=== PATIENT | male | born 1955 | race Two or more races ===

== ENCOUNTER 2019-08-19 08:52 | Emergency (ER) | payer MEDICARE ==
[2019-08-19] MEDS ORDERED: KETOROLAC TROMETHAMINE 60 MG/2 ML SDV IM ONE (09:31)
[2019-08-19] MEDS ORDERED: LISINOPRIL 5 MG TABLET PO ONE (09:32)
[2019-08-19] MEDS ORDERED: METOPROLOL TARTRATE 25 MG TABLET PO ONE (09:32)
--- NOTE | 2019-08-19 09:43 | ER Document Report ---
HPI - HPI Time Seen by Provider: 08/19/19 09:23 Pain Level: 5 Context: Patient is a 64-year-old male with a history of hypertension who presents to the emergency department with a chief complaint of hand pain. Patient reports yesterday around noon he was at work when he was pulling on a rope and developed right hand pain. Patient denies a specific injury. Patient reports that he is having significant pain in his second, third, fourth and fifth digit of the right hand. Patient reports increased swelling and inability to extend the third and fourth digit due to pain. Patient thinks that his fingers are locked. Patient did not take anything for his pain/discomfort, and also did not take his blood pressure medications yesterday. Past Medical History - General Information source: Patient - Social History Smoking Status: Current Every Day Smoker Lives with: Family, Spouse/Significant other Family History: None Patient has suicidal ideation: No Patient has homicidal ideation: No - Past Medical History Cardiac Medical History: Reports: Hx Heart Attack, Hx Hypercholesterolemia, Hx Hypertension Pulmonary Medical History: Reports: None EENT Medical History: Reports: None Neurological Medical History: Reports: None Endocrine Medical History: Reports: None Renal/ Medical History: Reports: None Malignancy Medical History: Reports None GI Medical History: Reports: None Musculoskeletal Medical History: Reports None Skin Medical History: Reports None Psychiatric Medical History: Reports: None Traumatic Medical History: Reports: None Infectious Medical History: Reports: None Past Surgical History: Reports: Hx Cardiac Catheterization - stent Vertical Provider Document - CONSTITUTIONAL Agree With Documented VS: Yes Exam Limitations: No Limitations General Appearance: No Apparent Distress - INFECTION CONTROL TRAVEL OUTSIDE OF THE [place] IN LAST 30 DAYS: No - HEENT HEENT: Atraumatic, Normal ENT Exam, Normocephalic, PERRLA - NECK Neck: Normal Inspection - RESPIRATORY Respiratory: Breath Sounds Normal, No Respiratory Distress - CARDIOVASCULAR Cardiovascular: Regular Rate, Regular Rhythm - GI/ABDOMEN Gastrointestinal: Abdomen Soft, Abdomen Non-Tender, Normal Bowel Sounds - BACK Back: Normal Inspection - MUSCULOSKELETAL/EXTREMETIES Notes: Patient has edema noted to the second through fifth digit of the right hand. Patient reports he cannot extend the third and fourth digit as this causes significant pain. Patient has less than 2-second cap refill in all digits of the right hand. Patient has a +2 palpable right radial pulse. - NEURO Level of Consciousness: Awake, Alert, Appropriate - DERM Integumentary: Warm, Dry, No Rash Course - Re-evaluation Re-evalutation: 08/19/19 09:42 We will give patient a shot of Toradol for his discomfort, will also give him his blood pressure medication. The blood pressure medication and dosages were confirmed with the patient. Patient reports that he did not take his dose yesterday. We will also obtain an x-ray. 08/19/19 11:[address] Alston for consult. Patient's 3rd and 4th digit remain in the flexed position at the PIP joint. When attempting to straighten his fingers he reports significant pain. Patient's blood pressure has improved. 08/19/19 12:09 I did speak with Dr. Alston, he does recommend if the patient is able to tolerate a placing him in finger splints in the extended position if able to tolerate, if not will see in the office this week for follow up. Patient continues to have significant pain with palpation to the third and fourth digit. Will give the patient finger splints to go home with. We will also incorporate anti-inflammatories. He would like to see the patient in the office later this week. 08/19/19 18:35 I did call and speak with the patient who was able to follow up with Dr. Alston today and received injections. - Vital Signs Vital signs: Temp Pulse Resp BP Pulse Ox 97.5 F 80 20 195/119 H 97 08/19/19 08:58 08/19/19 08:58 08/19/19 08:58 08/19/19 08:58 08/19/19 08:58 - Diagnostic Test Radiology reviewed: Reports reviewed Radiology results interpreted by me: 08/19/19 10:21 Hand X-Ray 08/19/19 09:31 IMPRESSION: The 3rd and 4th digits are flexed at the PIP joints. There is no acute osseous abnormality of the right hand. Discharge - Discharge Clinical Impression: Trigger finger, right ring finger, Right hand pain Trigger finger Qualifiers: Trigger finger location: middle finger Laterality: right Qualified Code(s): M65.331 - Trigger finger, right middle finger Condition: Stable Disposition: HOME, SELF-CARE Additional Instructions: *Today was seen in the emergency department for right hand pain. Your x-ray was negative for any acute fracture dislocation. It does appear that you have a trigger finger in your third and fourth digits this is when your finger gets stuck in the bent position which does cause pain and swelling. You are being prescribed an anti-inflammatory called naproxen. Make sure that you do eat food with this as this can cause upset stomach. We also apply in a splint. Please wear the splint for comfort. If your symptoms do not resolve within the next week I would follow-up with orthopedics. I have given you a referral to Dr. Alston. Dr. Alston is our local hand surgeon. Sometimes trigger finger which is your diagnosis can require surgery if your symptoms do not improve. Please seek medical attention if you cannot move your finger at all or your fingers become numb, discolored or if you develop any new or worsening symptoms. Prescriptions: Naproxen 500 mg PO BID PRN #14 tablet PRN Reason: Referrals: JENARO ALSTON, [ACTIVE STAFF] - Follow up as needed
--- NOTE | 2019-08-19 10:18 | RADIOLOGY REPORT (SQ) ---
EXAM DESCRIPTION: HAND RIGHT 3 VIEWS COMPLETED DATE/TIME: 08/19/2019 9:55 am REASON FOR STUDY: Unable to extend 3rd, 4th 5th digit COMPARISON: None. EXAM PARAMETERS: NUMBER OF VIEWS: Three views. TECHNIQUE: AP, lateral and oblique radiographic images acquired of the right hand. LIMITATIONS: None. FINDINGS: MINERALIZATION: Normal. BONES: No acute fracture or dislocation. JOINTS: No effusions. SOFT TISSUES: No soft tissue swelling. OTHER: The 3rd and 4th digits are flexed at the PIP joints. IMPRESSION: The 3rd and 4th digits are flexed at the PIP joints. There is no acute osseous abnormal ity of the right hand. TECHNICAL DOCUMENTATION: JOB ID: [id number] [employer]- All Rights Reserved Reading location - IP/workstation name: [email or web address]
[2019-08-19 10:46] VITALS: BP 137/94
[2019-08-19] MEDS ORDERED: NAPROXEN 250 MG TABLET PO ONE (12:12)
== END 2019-08-19 12:27 | disposition home or self-care (01) ==
LOC: ER 08:52
DX: M65.331 Trigger finger, right middle finger (principal); M65.341 Trigger finger, right ring finger; M79.641 Pain in right hand; F17.200 Nicotine dependence, unspecified, uncomplicated; E78.00 Pure hypercholesterolemia, unspecified; I10 Essential (primary) hypertension; I25.2 Old myocardial infarction
CPT/HCPCS: 99283; 96372; 73130; J1885; A9270 ×3